=== PATIENT | female | born 1995 | race Caucasian/White ===

== ENCOUNTER 2018-05-17 09:14 | Emergency (ER) | payer OTHER ==
[2018-05-17] MEDS ORDERED: NORMAL SALINE 1000 ML 1,000 ML IV ONE (09:38)
[2018-05-17] MEDS ORDERED: ONDANSETRON HCL INJ/PF 4 MG/2 ML SDV IV ONE (09:38)
--- NOTE | 2018-05-17 09:38 | ER Document Report ---
ED General - General Chief Complaint: Vomiting Stated Complaint: VOMITING Time Seen by Provider: 05/17/18 09:34 Primary Care Provider: [facility] [Provider Group] - Follow up in 3-5 days Notes: Patient is a 22-year-old female, that 17 weeks gravid that presents to the emergency department for chief complaint of nausea and vomiting. Patient reports she is had approximately 11 episodes of vomiting since 8 PM last night, she is had a mild cough associated as well. She denies having any cramping, vaginal bleeding, dysuria or hematuria. She denies eating any undercooked or raw foods, nothing new that she is eaten. Main complaint at this time is nausea and feeling dehydrated. Past Medical History: Denies chronic medical conditions Past Surgical History: [place] tooth extraction Social History: Denies tobacco, alcohol or drug use. Family History: Reviewed and noncontributory for presenting illness Allergies: Reviewed, see documented allergy list. REVIEW OF SYSTEMS: Other than noted above, the 12 point review of systems was reviewed with the patient and were negative, all pertinent findings are included in the HPI. PHYSICAL EXAMINATION: Vital signs reviewed, nursing noted reviewed. GENERAL: Well-appearing, well-nourished appears uncomfortable HEAD: Atraumatic, normocephalic. EYES: Eyes appear normal, extraocular movements intact, sclera anicteric, conjunctiva are normal. ENT: nares patent, oropharynx clear without exudates. Moist mucous membranes. NECK: Normal range of motion, supple without lymphadenopathy LUNGS: Breath sounds clear to auscultation bilaterally and equal. No wheezes rales or rhonchi. HEART: Heart rate tachycardic, regular rhythm ABDOMEN: Soft, gravid, nontender, normoactive bowel sounds. No rebound, guarding, or rigidity. No masses appreciated. EXTREMITIES: Nontender, good range of motion, no pitting or edema. NEUROLOGICAL: No focal neurological deficits. Moves all extremities spontaneously Motor and sensory grossly intact on exam. PSYCH: Normal mood, normal affect. SKIN: Warm, Dry, normal turgor, no rashes or lesions noted on exposed skin TRAVEL OUTSIDE OF THE [place] IN LAST 30 DAYS: No - Related Data Allergies/Adverse Reactions: No Known Allergies Allergy (Verified 05/17/18 09:15) Past Medical History - Social History Smoking Status: Never Smoker Family History: Reviewed & Not Pertinent Physical Exam - Vital signs Vitals: Temp Pulse Resp BP Pulse Ox 98.3 F 135 H 16 135/78 H 100 05/17/18 09:26 05/17/18 09:26 05/17/18 09:26 05/17/18 09:26 05/17/18 09:26 Course - Re-evaluation Re-evalutation: Patient seen and examined vital signs reviewed. Patient was evaluated and treated as appropriate for the patient's presenting symptoms and complaint, with consideration of any critical or life threatening conditions that may be associated with their obtained history and exam as noted above. Patient was treated with IV fluids, and Zofran, urinalysis ordered The patient was re-evaluated and was improved, heart rate came down, no vomiting and tolerating p.o., UA was consistent with possible urinary tract infection, will send for culture, and start the patient on Keflex twice daily for 5 days. Evaluation was most consistent with nausea and vomiting in , and urinary tract infection. Plan of care was discussed with the patient at this point, after careful consideration I feel that that patient can be discharged from the emergency department, the patient was educated treatments and reasons to return to the emergency department based on their presumed diagnosis as noted above, they were advised to followup with a primary care physician in 2-3 days. Patient was agreeable to plan of care. *Note is created using voice recognition software and may contain spelling, syntax or grammatical errors. Laboratory 05/17/18 09:40 Urine Color YELLOW Urine Appearance CLOUDY Urine pH 5.0 Ur Specific [place] 1.025 Urine Protein 30 H Urine Glucose (UA) NEGATIVE Urine Ketones 80 H Urine Blood NEGATIVE Urine Nitrite NEGATIVE Urine Bilirubin NEGATIVE Urine Urobilinogen NEGATIVE Ur Leukocyte Esterase SMALL H Urine WBC (Auto) 10 Urine RBC (Auto) 7 Urine Bacteria (Auto) 1+ Squamous Epi Cells Auto 11 Urine Mucus (Auto) MANY Urine Ascorbic Acid 20 H - Vital Signs Vital signs: Temp Pulse Resp BP Pulse Ox 97.7 F 95 16 107/53 L 100 05/17/18 12:26 05/17/18 12:26 05/17/18 12:26 05/17/18 12:26 05/17/18 12:26 - Laboratory Laboratory results interpreted by me: 05/17/18 09:40 Urine Protein 30 H Urine Ketones 80 H Ur Leukocyte Esterase SMALL H Urine Ascorbic Acid 20 H Discharge - Discharge Clinical Impression: Nausea and vomiting Qualifiers: Vomiting type: unspecified Vomiting Intractability: non-intractable Qualified Code(s): R11.2 - Nausea with vomiting, unspecified UTI (urinary tract infection) Qualifiers: Urinary tract infection type: site unspecified Hematuria presence: without hematuria Qualified Code(s): N39.0 - Urinary tract infection, site not specified Condition: Stable Disposition: HOME, SELF-CARE Instructions: Urinary Tract Infection ([facility]), Vomiting ([facility]) Prescriptions: RX: Cephalexin Monohydrate [Keflex 500 mg Capsule] 500 mg PO BID 5 Days #10 capsule Referrals: [facility] [Provider Group] - Follow up in 3-5 days
[2018-05-17] MEDS ORDERED: RINGERS SOLUTION,LACTATED 1,000 ML IV ONE (09:40)
[2018-05-17 10:55] LABS: APPEARANCE,URINE CLOUDY; BILIRUBIN,URINE NEGATIVE (NEGATIVE); GLUCOSE, URINE NEGATIVE (NEGATIVE); KETONES,URINE 80 mg/dL (NEGATIVE); LEUKOCYTE ESTERASE,URINE SMALL (NEGATIVE); NITRITE,URINE NEGATIVE (NEGATIVE); PROTEIN,URINE 30 mg/dL (NEGATIVE); URINE SPECIFIC GRAVITY 1.025; UROBILINOGEN,URINE NEGATIVE mg/dL (<2.0)
[2018-05-17 10:56] LABS: COLOR,URINE YELLOW
[2018-05-17] MEDS ORDERED: ONDANSETRON ODT 4 MG TAB (6 TAB/ER DISP) PO PRN (11:41)
[2018-05-17 12:26] VITALS: BP 107/53
== END 2018-05-17 12:28 | disposition home or self-care (01) ==
LOC: ER 09:14
DX: O21.9 Vomiting of pregnancy, unspecified (principal); O23.42 Unspecified infection of urinary tract in pregnancy, second trimester; R05 Cough; Z3A.17 17 weeks gestation of pregnancy
CPT/HCPCS: 87086; 99284; 96361; 96374; 81001; J2405; J7030; J7120